=== PATIENT | female | born 1995 | race Asian ===

== ENCOUNTER 2024-06-21 05:26 | Emergency (ER) | payer OTHER ==
[2024-06-21 06:01] VITALS: TEMP 36.78072
[2024-06-21 07:01] LABS: BASOPHILS % 0.4 % (0.0-2.0); HEMATOCRIT. 32.8 % (36.0-48.0); MEAN CORPUSCULAR HEMOGLOBIN 28.3 pg (28.0-32.0); MEAN CORPUSCULAR HGB CONC 33.7 g/dL (31.0-37.0); MEAN PLATELET VOLUME 8.9 fl (7.4-10.4); MONOCYTES % 8.6 % (2.0-8.0); PLATELET 171 x1000/uL (130-400); RED CELL DISTRIBUTION WIDTH 15.4 % (11.6-14.6); WHITE BLOOD COUNT 5.1 x1000/uL (4.5-11.0)
[2024-06-21 07:09] LABS: CHLORIDE 108 mEq/L (98-107); POTASSIUM 3.6 mEq/L (3.5-5.1); SODIUM 141 mEq/L (136-145)
[2024-06-21 07:10] LABS: CALCIUM 8.7 mg/dL (8.7-10.4); CARBON DIOXIDE 26 mEq/L (21-32)
[2024-06-21 07:15] LABS: CREATININE 0.6 mg/dL (0.6-1.0); GLUCOSE 82 mg/dL (70-105); UREA NITROGEN BLOOD 6 mg/dL (9-23)
[2024-06-21 07:17] LABS: ALANINE AMINOTRANSFERASE 27 IU/L (10-49); ALBUMIN 3.8 g/dL (3.2-4.8); ASPARTATE AMINOTRANSFERASE 36 IU/L (<34); BILIRUBIN TOTAL 0.5 mg/dL (0.1-1.0); PROTEIN TOTAL 6.1 g/dL (6.0-8.3)
[2024-06-21] MEDS: ACETAMINOPHEN 325MG TABLET PO ONE (07:24)
[2024-06-21 09:51] VITALS: BP 130/80; PULSE 76; RESP 16; O2SAT 99
== END 2024-06-21 10:21 | disposition home or self-care (01) ==
LOC: ER 06:00
DX: N93.9 Abnormal uterine and vaginal bleeding, unspecified (principal)
CPT/HCPCS: 36415; 76830; 76856; 80053; 84702; 85025; 86850; 86900; 99284